=== PATIENT | female | born 1960 | race Caucasian/White ===

== ENCOUNTER 2018-08-01 15:58 | Emergency (ER) | payer SELFPAY ==
[~2018-08-01] VITALS: Ht 167.6 cm; Wt 79.4 kg
[2018-08-01 17:10] LABS: BASOPHILS # (AUTO) 0.1 10^3/uL (0.0-0.1); BASOPHILS % (AUTO) 1 % (0-10); EOSINOPHILS # (AUTO) 0.2 10^3/uL (0.0-0.3); EOSINOPHILS % (AUTO) 2 % (0-10); HEMATOCRIT 46 % (35-52); HEMOGLOBIN 14.9 G/DL (11.5-16.0); LYMPHOCYTES # (AUTO) 2.4 X 10^3 (1.0-4.0); LYMPHOCYTES % (AUTO) 24 % (12-44); MEAN CORPUSCULAR HEMOGLOBIN 30 PG (25-34); MEAN CORPUSCULAR HGB CONC 33 G/DL (32-36); MEAN CORPUSCULAR VOLUME 91 FL (80-99); MEAN PLATELET VOLUME 9.6 FL (7.4-10.4); MONOCYTES # (AUTO) 0.8 X 10^3 (0.0-1.0); MONOCYTES % (AUTO) 8 % (0-12); NEUTROPHILS # (AUTO) 6.5 X 10^3 (1.8-7.8); NEUTROPHILS % (AUTO) 66 % (42-75); PLATELET COUNT 334 10^3/uL (130-400); WHITE BLOOD COUNT 9.9 10^3/uL (4.3-11.0)
--- NOTE | 2018-08-01 17:11 | ED Abdominal Pain ---
General Chief Complaint: Abdominal/GI Problems Stated Complaint: ABD PAIN Nursing Triage Note: PT AMB TO TRIAGE WITH COMPLAINT OF LLQ ABD PAIN. STATES HAS BEEN GOING ON FOR THREE WEEKS. Sepsis Screen: No Definite Risk Source of Information: Patient Exam Limitations: No Limitations (RYAN ADKINS MD) History of Present Illness Date Seen by Provider: Aug 01, 2018 Time Seen by Provider: 17:09 Initial Comments Patient complains of left lower quadrant pain for the past 2 weeks. It is getting more severe. No change in stool habits. No nausea or vomiting. Pain is worse with movement. only Abdominal surgeries are and hysterectomy. No fevers or chills. (RYAN ADKINS MD) Allergies and Home Medications Allergies Coded Allergies: No Known Drug Allergies (Unverified , 08/01/18) Home Medications No Active Prescriptions or Reported Meds Patient Home Medication List Home Medication List Reviewed: Yes (KIMBERLY ROQUE) Review of Systems Review of Systems Constitutional: no symptoms reported Respiratory: No Symptoms Reported Cardiovascular: No Symptoms Reported Gastrointestinal: Abdominal Pain; Denies Diarrhea, Denies Nausea, Denies Vomiting Musculoskeletal: no symptoms reported Skin: no symptoms reported Psychiatric/Neurological: No Symptoms Reported (RYAN ADKINS MD) All Other Systems Reviewed Negative Unless Noted: Yes (RYAN ADKINS MD) Past Mumurhj-Tnzxjp-Lrhoug Hx Patient Social History Alcohol Use: Denies Use Recreational Drug Use: No Smoking Status: Current Everyday Smoker Type Used: Cigarettes Recent Foreign Travel: No Contact w/Someone Who Travel: No Recent Infectious Disease Expo: No Recent Hopitalizations: No (RYAN ADKINS MD) Immunizations Up To Date Tetanus Booster (TDap): Unknown (RYAN ADKINS MD) Seasonal Allergies Seasonal Allergies: No (RYAN ADKINS MD) Past Medical History Surgeries: Yes (RIGHT FOOT, LOWER BACK, RIGHT EYE) Section, Hysterectomy, Orthopedic Respiratory: No Cardiac: No 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 oz. 79.239756uq; BMI Method:Stated General Appearance: WD/WN, no apparent distress HEENT: pharynx normal Neck: supple Respiratory: lungs clear, normal breath sounds Cardiovascular: regular rate, rhythm, no edema Gastrointestinal: soft; No distended, No guarding, No rebound; tenderness ( Left lower Quadrant tenderness) Extremities: normal inspection Neurologic/Psychiatric: alert, normal mood/affect Skin: normal color (RYAN ADKINS MD) Progress/Results/Core Measures Results/Orders Lab Results Laboratory Tests Test 08/01/18 16:55 08/01/18 18:07 Range/Units White Blood Count 9.9 4.3-11.0 10^3/uL Red Blood Count 5.04 4.35-5.85 10^6/uL Hemoglobin 14.9 11.5-16.0 G/DL Hematocrit 46 35-52 % Mean Corpuscular Volume 91 80-99 FL Mean Corpuscular Hemoglobin 30 25-34 PG Mean Corpuscular Hemoglobin Concent 33 32-36 G/DL Red Cell Distribution Width 13.0 10.0-14.5 % Platelet Count 334 130-400 10^3/uL Mean Platelet Volume 9.6 7.4-10.4 FL Neutrophils (%) (Auto) 66 42-75 % Lymphocytes (%) (Auto) 24 12-44 % Monocytes (%) (Auto) 8 0-12 % Eosinophils (%) (Auto) 2 0-10 % Basophils (%) (Auto) 1 0-10 % Neutrophils # (Auto) 6.5 1.8-7.8 X 10^3 Lymphocytes # (Auto) 2.4 1.0-4.0 X 10^3 Monocytes # (Auto) 0.8 0.0-1.0 X 10^3 Eosinophils # (Auto) 0.2 0.0-0.3 10^3/uL Basophils # (Auto) 0.1 0.0-0.1 10^3/uL Sodium Level 140 135-145 MMOL/L Potassium Level 4.0 3.6-5.0 MMOL/L Chloride Level 106 98-107 MMOL/L Carbon Dioxide Level 24 21-32 MMOL/L Anion Gap 10 5-14 MMOL/L Blood Urea Nitrogen 18 7-18 MG/DL Creatinine 0.74 0.60-1.30 MG/DL Estimat Glomerular Filtration Rate > 60 BUN/Creatinine Ratio 24 Glucose Level 110 H 70-105 MG/DL Calcium Level 9.9 8.5-10.1 MG/DL Corrected Calcium 9.7 8.5-10.1 MG/DL Total Bilirubin 0.3 0.1-1.0 MG/DL Aspartate Amino Transf (AST/SGOT) 19 5-34 U/L Alanine Aminotransferase (ALT/SGPT) 28 0-55 U/L Alkaline Phosphatase 61 40-136 U/L Total Protein 7.4 6.4-8.2 GM/DL Albumin 4.3 3.2-4.5 GM/DL Lipase 24 8-78 U/L Urine Color YELLOW Urine Clarity SLIGHTLY CLOUDY Urine pH 6 5-9 Urine Specific Bushnell 1.010 L 1.016-1.022 Urine Protein NEGATIVE NEGATIVE Urine Glucose (UA) NEGATIVE NEGATIVE Urine Ketones NEGATIVE NEGATIVE Urine Nitrite NEGATIVE NEGATIVE Urine Bilirubin NEGATIVE NEGATIVE Urine Urobilinogen NORMAL NORMAL MG/DL Urine Leukocyte Esterase NEGATIVE NEGATIVE Urine RBC (Auto) NEGATIVE NEGATIVE Urine RBC NONE /HPF Urine WBC NONE /HPF Urine Squamous Epithelial Cells 2-5 /HPF Urine Crystals NONE /LPF Urine Bacteria NEGATIVE /HPF Urine Casts NONE /LPF Urine Mucus NEGATIVE /LPF Urine Culture Indicated NO (KIMBERLY ROQUE) Medications Given in ED Current Medications Medications Dose Ordered Sig/Jimena Route Start Time Stop Time Status Last Admin Dose Admin Sodium Chloride 1,000 ml ONCE ONCE IV 08/01/18 17:15 08/01/18 17:16 DC 08/01/18 17:24 1,000 ML (KIMBERLY ROQUE) Vital Signs/I&O 08/01/18 16:11 Temp 98.0 Pulse 83 Resp 20 B/P (MAP) 198/101 (133) Pulse Ox 96 O2 Delivery Room Air (KIMBERLY ROQUE) Blood Pressure Mean: 133 Progress Progress Note #1: Time: 19:05 Progress Note Had a discussion about the CT results and that she would probably be best served by a advanced gynecologic oncology team at a tertiary center. We discussed [facility] would be an appropriate place to go. 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 Discussed the case with the triage coordinator Daya at [facility]. She will give the story to Dr. Singh, gynecologic oncology and call us back if they need any further information. Progress Note #2: Time: 19:50 Progress Note Sheryl, triage coordinator from [facility] has spoke to Dr. Singh and will forward the information and phone number to the nurse Navigator Melinda Hernandez. Expect a phone call in the morning from them to set up follow-up outpatient. (KIMBERLY ROQUE) Diagnostic Imaging Diagonstic Imaging: CT Plain Films/CT/US/NM/MRI: abdomen, pelvis Comments [facility]. [place], [place] NAME: BATSHEVA ANDRES [facility] REC#: [id number] PT STATUS: REG ER : 1960 PHYSICIAN: RYAN ADKINS MD ADMIT DATE: 08/01/18/ER Draft Date of Exam:08/01/18 CT ABDOMEN/PELVIS W PROCEDURE: CT abdomen and pelvis with contrast. TECHNIQUE: Multiple contiguous axial images were obtained through the abdomen and pelvis after administration of intravenous contrast. Auto Exposure Controls were utilized during the CT exam to meet ALARA standards for radiation dose reduction. INDICATION: Low pelvic and left lower quadrant pain and bloating x3 weeks. FINDINGS: There is a very large mass demonstrated throughout the abdomen and pelvis that measures up to 27 cm transverse x 23 cm AP x 25 cm craniocaudal. The majority of this is largely cystic, but there are lobulated regions of soft tissue thickening and nodularity along the periphery of this lesion predominantly at its apex superiorly and within the posterior and inferior aspects of this apparent mass. Given the marked size of this lesion, the primary consideration is that of a large tumor of ovarian etiology. This large lesion does displace all of the patient's bowel loops, but there are no current findings to suggest bowel obstruction. There is uncomplicated diverticulosis. There is vkjx-ij-rnurzhij degree of stool within the colon. The appendix appears normal. There is no hydronephrosis. The kidneys enhance normally. There is no adrenal mass. The pancreas and spleen appear normal. The liver demonstrates no focal abnormality or evidence of a mass. The gallbladder is nondistended without biliary dilatation. There are no pathologically enlarged lymph nodes evident. There are gpgnfsql-us-xpqlqaox atherosclerotic changes within the abdominal aorta. There is no acute or suspicious osseous abnormality. There are lower lumbar degenerative endplate changes and facet arthropathy. There appears to be high-grade bilateral foraminal stenosis at L5-S1. The lung bases appear clear. IMPRESSION: 1. Very large abdominal and pelvic mass with dimensions as above. This has largely central cystic contents with multifocal regions of diffuse apparent soft tissue nodularity and likely enhancement about the periphery of this mass. 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 2. The uterus is not evident. There has likely been prior hysterectomy. 3. The mass results in marked displacement of the abdominal and pelvic bowel loops but no evidence of bowel obstruction. There is no hydronephrosis. 4. There are no findings of free air or free fluid. 5. No evidence to suggest metastatic disease. 6. Atherosclerosis. 7. Degenerative disc disease. Dictated on workstation # [id number] Dict: 08/01/18 1826 Trans: 08/01/18 1837 [id number] Interpreted by: HARLEEN PAEZ MD Electronically signed by: Reviewed: Reviewed by Me (KIMBERLY ROQUE) Departure Impression Primary Impression: Mass, ovarian Disposition: HOME, SELF-CARE Condition: Stable Departure-Patient Inst. Decision time for Depature: 19:51 (KIMBERLY ROQUE) Referrals: NO,LOCAL PHYSICIAN (PCP/Family) Primary Care Physician Patient Instructions: LOCAL PHYSICIAN LIST, Ovarian Cyst (DC) Add. Discharge Instructions: If you're having significant pain there'll be some tramadol tablets and take one half to one tablet as necessary every 6 hours in addition to your Tylenol and/or ibuprofen. Having nausea you can take one tablet of Zofran place under the tongue allowed to absorb every 6 hours as needed. Tomorrow expect a call from the office of [facility] gynecology/ oncology. One of her coordinator Melinda or Mary we'll contact you. Please return to the ER if you have any further significant intractable pain nausea or other concerns. It would be useful to establish care with a primary care doctor to help coordinate your care from [place]. All discharge instructions reviewed with patient and/or family. Voiced understanding. Scripts Tramadol HCl (Tramadol HCl) 50 Mg Tablet 50 MG PO Q6H PRN for PAIN, #20 TAB 0 Refills Prov: KIMBERLY ROQUE 08/01/18 Ondansetron (Ondansetron Odt) 4 Mg Tab.rapdis 4 MG PO Q6H PRN for NAUSEA/VOMITING, #12 TAB 0 Refills Prov: KIMBERLY ROQUE 08/01/18 Work/School Note: Work Release Form Date Seen in the Emergency Department: Aug 01, 2018 Return to Work: Aug 02, 2018 Restrictions: No Restrictions RYAN ADKINS MD Aug 01, 2018 17:11 KIMBERLY ROQUE Aug 01, 2018 18:57
[2018-08-01] MEDS ORDERED: NS 1000 ML IV BAG IV ONE (17:15)
[2018-08-01 17:29] LABS: ALANINE AMINOTRANSFERASE 28 U/L (0-55); ALBUMIN 4.3 GM/DL (3.2-4.5); ALKALINE PHOSPHATASE 61 U/L (40-136); BILIRUBIN,TOTAL 0.3 MG/DL (0.1-1.0); BUN/CREATININE RATIO 24; CALCIUM 9.9 MG/DL (8.5-10.1); CARBON DIOXIDE 24 MMOL/L (21-32); CHLORIDE 106 MMOL/L (98-107); CREATININE SERUM 0.74 MG/DL (0.60-1.30); GFR ESTIMATED > 60; GLUCOSE 110 MG/DL (70-105); LIPASE 24 U/L (8-78); SODIUM 140 MMOL/L (135-145); TOTAL PROTEIN 7.4 GM/DL (6.4-8.2)
[2018-08-01] MEDS ORDERED: HOLD METFORMIN - RECEIVED CONTRAST 20 ML VIAL IV SCH (18:00)
[2018-08-01] MEDS ORDERED: IOHEXOL 350 MG/ML 100 ML (OMNIPAQUE 350) VIAL IV ONE (18:00)
[2018-08-01 18:14] LABS: BILIRUBIN,URINE NEGATIVE (NEGATIVE); CLARITY,URINE SLIGHTLY CLOUDY; COLOR,URINE YELLOW; GLUCOSE, URINE (UA) NEGATIVE (NEGATIVE); KETONES,URINE NEGATIVE (NEGATIVE); LEUKOCYTE ESTERASE ,URINE NEGATIVE (NEGATIVE); NITRITE,URINE NEGATIVE (NEGATIVE); PH,URINE 6 (5-9); PROTEIN,URINE NEGATIVE (NEGATIVE); UROBILINOGEN,URINE NORMAL (NORMAL)
[2018-08-01 18:24] LABS: BACTERIA,URINE NEGATIVE /HPF
--- NOTE | 2018-08-01 18:38 | Diagnostic Imaging Report ---
PROCEDURE: CT abdomen and pelvis with contrast. TECHNIQUE: Multiple contiguous axial images were obtained through the abdomen and pelvis after administration of intravenous contrast. Auto Exposure Controls were utilized during the CT exam to meet ALARA standards for radiation dose reduction. INDICATION: Low pelvic and left lower quadrant pain and bloating x3 weeks. FINDINGS: There is a very large mass demonstrated throughout the abdomen and pelvis that measures up to 27 cm transverse x 23 cm AP x 25 cm craniocaudal. The majority of this is largely cystic, but there are lobulated regions of soft tissue thickening and nodularity along the periphery of this lesion predominantly at its apex superiorly and within the posterior and inferior aspects of this apparent mass. Given the marked size of this lesion, the primary consideration is that of a large tumor of ovarian etiology. This large lesion does displace all of the patient's bowel loops, but there are no current findings to suggest bowel obstruction. There is uncomplicated diverticulosis. There is rabv-yi-fpzudbtu degree of stool within the colon. The appendix appears normal. There is no hydronephrosis. The kidneys enhance normally. There is no adrenal mass. The pancreas and spleen appear normal. The liver demonstrates no focal abnormality or evidence of a mass. The gallbladder is nondistended without biliary dilatation. There are no pathologically enlarged lymph nodes evident. There are dfaxmlnu-bf-pmqngjec atherosclerotic changes within the abdominal aorta. There is no acute or suspicious osseous abnormality. There are lower lumbar degenerative endplate changes and facet arthropathy. There appears to be high-grade bilateral foraminal stenosis at L5-S1. The lung bases appear clear. IMPRESSION: 1. Very large abdominal and pelvic mass with dimensions as above. This has largely central cystic contents with multifocal regions of diffuse apparent soft tissue nodularity and likely enhancement about the periphery of this mass. 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 2. The uterus is not evident. There has likely been prior hysterectomy. 3. The mass results in marked displacement of the abdominal and pelvic bowel loops but no evidence of bowel obstruction. There is no hydronephrosis. 4. There are no findings of free air or free fluid. 5. No evidence to suggest metastatic disease. 6. Atherosclerosis. 7. Degenerative disc disease. Dictated by: Dictated on workstation # [id number]
[2018-08-01] MEDS ORDERED: TRAM50TA2 PO (19:53)
[2018-08-01] MEDS ORDERED: ONDA4TAB11 PO (19:53)
[2018-08-01 20:06] VITALS: BP 181/95
== END 2018-08-01 20:06 | disposition home or self-care (01) ==
LOC: ER 16:00
DX: N83.8 Other noninflammatory disorders of ovary, fallopian tube and broad ligament (principal); F17.210 Nicotine dependence, cigarettes, uncomplicated; Z98.890 Other specified postprocedural states; Z90.710 Acquired absence of both cervix and uterus
CPT/HCPCS: 36415; 74177; 80053; 81000; 83690; 85025

== ENCOUNTER → 2018-08-20 | Outpatient (CLI) | payer SELFPAY ==
[~2018-08-20] MED LIST: ONDA4TAB11 PO; TRAM50TA2 PO
== END ==
LOC: CARD 12:44
PROVIDERS: ATTEND Obstetrics & Gynecology Gynecologic Oncology
DX: R19.09 Other intra-abdominal and pelvic swelling, mass and lump (principal)
CPT/HCPCS: 93306